=== PATIENT | female | born 1950 | race American Indian/Alaskan Native ===

== ENCOUNTER 2017-02-27 12:51 | Emergency (ER) | payer MEDICARE ==
[2017-02-27 13:21] VITALS: TEMP 98.1
[2017-02-27] MEDS ORDERED: Naproxen 550 mg Tab PO STA (13:51)
--- NOTE | 2017-02-27 13:53 | C.PDOC ---
History Of Present Illness 66 year old female with a history of HTN, asthma, and high cholesterol presents to the ED as a referral from PMD with complaints of intermittent left sided chest pain for three days. Patient states she went to her PMD for a checkup this morning and was referred to ED for further evaluation of chest pain. She notes this weekend she "did not feel right" and describes the chest pain as a "muscle spasm." Patient took Tylenol with improvement of symptoms and denies radiation of pain or exacerbating factors. She denies fever, chills, shortness of breath, nausea, vomiting, weakness, numbness, leg swelling, or calf tenderness. Chief Complaint (Nursing): Chest Pain History Per: Patient History/Exam Limitations: no limitations Onset/Duration Of Symptoms: Hrs Current Symptoms Are (Timing): Still Present Quality: "Pain" Associated Symptoms: denies: Nausea, Dyspnea, Diaphoresis, Syncope Exacerbating Factors: None Alleviating Factors: None Recent travel outside of the [place]: No Additional History Per: Prior Records (Patient's PMD ) Past Medical History Reviewed: Historical Data, Nursing Documentation, Vital Signs Vital Signs: Last Vital Signs Temp 98.1 F 02/27/17 13:17 Pulse 64 02/27/17 15:56 Resp 16 02/27/17 15:56 BP 171/83 H 02/27/17 15:56 Pulse Ox 100 02/27/17 15:56 - Medical History PMH: HTN Family History: States: Unknown Family Hx - Social History Hx Alcohol Use: No Hx Substance Use: No - Immunization History Hx Tetanus Toxoid Vaccination: No Hx Influenza Vaccination: No Hx Pneumococcal Vaccination: No Review Of Systems Constitutional: Negative for: Fever, Chills Cardiovascular: Positive for: Chest Pain. Negative for: Palpitations, Light Headedness Respiratory: Negative for: Cough, Shortness of Breath Gastrointestinal: Negative for: Nausea, Vomiting, Abdominal Pain Neurological: Negative for: Weakness, Numbness Physical Exam - Physical Exam Appears: Well (well developed and nourished ), Non-toxic, No Acute Distress, Other (Paitent is pleasant and on exam denies pain ) Skin: Warm, Dry Head: Atraumatic, Normacephalic Eye(s): bilateral: Normal Inspection, PERRL, EOMI Ear(s): Bilateral: Normal Oral Mucosa: Moist Throat: Normal, No Erythema, No Exudate Neck: Normal ROM, Supple Chest: Symmetrical, No Deformity, Tenderness (reproducible chest tenderness to the left chest wall ) Cardiovascular: Rhythm Regular, No Murmur Gastrointestinal/Abdominal: Soft, No Tenderness, No Organomegaly Extremity: Normal ROM, No Tenderness, No Pedal Edema, No Calf Tenderness, Capillary Refill (good capillary refill, less than two seconds ), No Deformity, No Swelling Neurological/Psych: Oriented x3, Other (GCS 15) ED Course And Treatment - Laboratory Results Result Diagrams: 02/27/17 14:01 02/27/17 14:01 ECG: Interpreted By Me, Viewed By Me ECG Rhythm: Sinus Rhythm Interpretation Of ECG: All intervals are within normal limits. No ectopy. ST wave segments are in normal limits. No old EKG available for comparison. Rate From EC O2 Sat by Pulse Oximetry: 99 (RA) - Radiology CXR: Interpreted by Me, Viewed By Me CXR Interpretation: Yes: No Acute Disease, Other (Cardiac silhouette within normal limits. Aortic knob within normal limits. ) Progress Note: EKG, CXR, and blood work were ordered. Patient was given naproxen. Disposition Counseled Patient/Family Regarding: Studies Performed, Diagnosis, Need For Followup - Disposition Referrals: Reuben Whitaker MD [Staff Provider] - Disposition: HOME/ ROUTINE Disposition Time: 15:31 Condition: GOOD Prescriptions: Naproxen Sodium 550 mg PO BID PRN #20 tablet PRN Reason: Pain, Mild (1-3) Forms: [facility] (Tristanian) Print Language: BELARUSIAN - POA Core Measure Indicators: Chest Pain - Clinical Impression Clinical Impression: Chest wall pain - Scribe Statement The provider has reviewed the documentation as recorded by the Scribchris De La Torre All medical record entries made by the Scribe were at my direction and personally dictated by me. I have reviewed the chart and agree that the record accurately reflects my personal performance of the history, physical exam, medical decision making, and the department course for this patient. I have also personally directed, reviewed, and agree with the discharge instructions and disposition.
[2017-02-27] MEDS ORDERED: Naproxen 550 mg Tab PO ONE (14:03)
[2017-02-27 14:07] LABS: BASO # 0.1 K/uL (0.0-0.2); BASO % 1.1 % (0.0-2.0); EOS # 0.2 K/uL (0.0-0.7); EOS % 3.1 % (0.0-4.0); HEMATOCRIT 37.3 % (34.0-47.0); LYMPH # 2.1 K/uL (1.0-4.3); LYMPH % 32.9 % (20.0-40.0); MEAN CELL VOLUME 84.3 fL (81.0-99.0); MEAN CORPUSCULAR HEMOGLOBIN 28.4 pg (27.0-31.0); MEAN CORPUSCULAR HGB CONC 33.8 g/dL (33.0-37.0); MEAN PLATELET VOLUME 8.1 fL (7.2-11.7); MONO # 0.7 K/uL (0.0-0.8); MONO % 10.4 % (0.0-10.0); NRBC % 0.1 % (0.0-2.0); RED CELL DISTRIBUTION WIDTH 14.2 % (11.5-14.5); WHITE BLOOD COUNT 6.3 K/uL (4.8-10.8)
[2017-02-27 14:18] LABS: CHLORIDE 100 mmol/L (98-107); POTASSIUM 4.2 mmol/L (3.6-5.2); SODIUM 140 mmol/L (132-148)
[2017-02-27 14:20] LABS: GFR AFRICAN-AMERICAN > 60
[2017-02-27 14:21] LABS: ALB/GLOB RATIO 1.1 (1.0-2.1); ALKALINE PHOSPHATASE 97 U/L (38-126); ALT/SGPT 29 U/L (9-52); AST/SGOT 17 U/L (14-36); BILIRUBIN,TOTAL 0.4 mg/dL (0.2-1.3); BLOOD UREA NITROGEN 22 mg/dL (7-17); CALCIUM 9.4 mg/dl (8.6-10.4); CARBON DIOXIDE 26 mmol/L (22-30); GLUCOSE,RANDOM 80 mg/dL (65-105); TOTAL PROTEIN 7.9 g/dL (6.3-8.3)
--- NOTE | 2017-02-27 15:32 | RAD ---
HISTORY: chest pain COMPARISON: None. FINDINGS: LUNGS: No active pulmonary disease. PLEURA: No significant pleural effusion identified, no pneumothorax apparent. CARDIOVASCULAR: Normal. OSSEOUS STRUCTURES: No significant abnormalities. VISUALIZED UPPER ABDOMEN: Normal. OTHER FINDINGS: None. IMPRESSION: No active disease. Please note: No preliminary report/ innterpretation of this examination provided by emergency department personnel.
[2017-02-27 15:57] VITALS: BP 171/83; PULSE 64; RESP 16
[2017-02-27 16:56] VITALS: O2SAT 99
--- NOTE | 2017-03-01 11:52 | CARD ---
APPROVED REPORT EKG Measurement Heart [id number] <Conclusion> Normal sinus rhythm Normal ECG
== END 2017-02-27 15:57 | disposition home or self-care (01) ==
LOC: C.ER 12:51
DX: R07.89 Other chest pain (principal)

== ENCOUNTER 2017-05-05 13:46 | Inpatient (IN) | payer OTHER, MEDICARE ==
[2017-05-05] MEDS ORDERED: Labetalol 25mg/5ml Syringe IVP STA (13:59)
[2017-05-05 14:21] LABS: BASO % 0.7 % (0.0-2.0); EOS # 0.2 K/uL (0.0-0.7); EOS % 3.5 % (0.0-4.0); HEMATOCRIT 39.3 % (34.0-47.0); LYMPH # 2.6 K/uL (1.0-4.3); LYMPH % 39.1 % (20.0-40.0); MEAN CELL VOLUME 85.4 fL (81.0-99.0); MEAN CORPUSCULAR HEMOGLOBIN 27.7 pg (27.0-31.0); MEAN CORPUSCULAR HGB CONC 32.4 g/dL (33.0-37.0); MONO # 0.6 K/uL (0.0-0.8); MONO % 9.7 % (0.0-10.0); RED CELL DISTRIBUTION WIDTH 13.9 % (11.5-14.5); WHITE BLOOD COUNT 6.7 K/uL (4.8-10.8)
[2017-05-05 14:27] LABS: ALKALINE PHOSPHATASE 96 U/L (38-126); ALT/SGPT 33 U/L (9-52); AST/SGOT 20 U/L (14-36); BILIRUBIN,TOTAL 0.4 mg/dL (0.2-1.3); BLOOD UREA NITROGEN 19 mg/dL (7-17); CALCIUM 8.8 mg/dl (8.6-10.4); CARBON DIOXIDE 33 mmol/L (22-30); CHLORIDE 101 mmol/L (98-107); CHOLESTEROL 237 mg/dL (0-199); GFR AFRICAN-AMERICAN > 60; GLUCOSE,RANDOM 114 mg/dL (65-105); POTASSIUM 3.7 mmol/L (3.6-5.2); SODIUM 138 mmol/L (132-148); TOTAL PROTEIN 8.7 g/dL (6.3-8.3)
--- NOTE | 2017-05-05 14:35 | RAD ---
HISTORY: adm COMPARISON: 02/27/2017. FINDINGS: LUNGS: No active pulmonary disease. PLEURA: No significant pleural effusion identified, no pneumothorax apparent. CARDIOVASCULAR: Normal. OSSEOUS STRUCTURES: No significant abnormalities. VISUALIZED UPPER ABDOMEN: Normal. OTHER FINDINGS: None. IMPRESSION: No active pulmonary disease.
[2017-05-05 14:37] LABS: ALB/GLOB RATIO 0.9 (1.0-2.1)
[2017-05-05] MEDS ORDERED: Aspirin 325 mg EC Tablets PO STA (14:51)
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
[2017-05-05 15:18] LABS: RBC URINE 11 /hpf (0-3); URINE BILIRUBIN NEGATIVE (NEGATIVE); URINE BLOOD 2+ (NEGATIVE); URINE COLOR Yellow (YELLOW); URINE GLUCOSE (UA) NORMAL (Normal); URINE KETONE NEGATIVE (NEGATIVE); URINE LEUKOCYTE ESTERASE NEG Leu/uL (Negative); URINE PROTEIN NEGATIVE (NEGATIVE); URINE UROBILINOGEN NORMAL mg/dL (0.2-1.0); WBC URINE < 1 /hpf (0-5)
--- NOTE | 2017-05-05 15:19 | CT ---
PROCEDURE: CT HEAD WITHOUT CONTRAST. HISTORY: HTN, MS change, ? bleed COMPARISON: None available. TECHNIQUE: Axial computed tomography images were obtained through the head/brain without intravenous contrast. Radiation dose: Total exam DLP = 830.72 mGy-cm. This CT exam was performed using one or more of the following dose reduction techniques: Automated exposure control, adjustment of the mA and/or kV according to patient size, and/or use of iterative reconstruction technique. FINDINGS: HEMORRHAGE: No intracranial hemorrhage. BRAIN: No mass effect or edema. The forrest-white matter differentiation appears intact. Please note that MRI with diffusion imaging is more sensitive in the detection of acute ischemic event. VENTRICLES: No hydrocephalus. CALVARIUM: Unremarkable. PARANASAL SINUSES: Unremarkable as visualized. No significant inflammatory changes. MASTOID AIR CELLS: Unremarkable as visualized. No inflammatory changes. OTHER FINDINGS: None. IMPRESSION: No acute intracranial pathology identified.
--- NOTE | 2017-05-05 15:33 | C.PDOC ---
Time Seen by Provider: 05/05/17 13:49 Chief Complaint (Nursing): Dizziness/Lightheaded Past Medical History Vital Signs: Last Vital Signs Temp 97.9 F 05/05/17 13:46 Pulse 76 05/05/17 14:13 Resp 16 05/05/17 14:13 BP 197/77 H 05/05/17 14:13 Pulse Ox 100 05/05/17 14:13 - Medical History PMH: HTN Family History: States: Unknown Family Hx - Social History Hx Alcohol Use: No Hx Substance Use: No - Immunization History Hx Tetanus Toxoid Vaccination: No Hx Influenza Vaccination: No Hx Pneumococcal Vaccination: No ED Course And Treatment - Laboratory Results Result Diagrams: 05/05/17 14:05 05/05/17 14:05 O2 Sat by Pulse Oximetry: 100 Disposition - Disposition
[2017-05-05] MEDS ORDERED: Albuterol HFA 90 mcg/actuation (8 g) IH PRN (16:57)
[2017-05-05 20:24] VITALS: RESP 20; O2SAT 99
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
[2017-05-06 04:51] VITALS: BP 101/63; TEMP 97.6
[2017-05-06] MEDS ORDERED: Enoxaparin 40 mg Syringe SC SCH (10:00)
[2017-05-06] MEDS ORDERED: Rosuvastatin Calcium 2.5 mg Tab PO SCH (10:00)
[2017-05-06] MEDS ORDERED: Gadodiamide 287 mg/ml 20 ml IV ONE (10:25)
--- NOTE | 2017-05-06 13:18 | MRI ---
PROCEDURE: MRI BRAIN WITH AND WITHOUT CONTRAST HISTORY: syncope COMPARISON: Comparison is made to the previous CT of the head dated 05/05/2017 TECHNIQUE: Multiplanar, multisequence MR images of the brain were obtained with and without intravenous contrast enhancement. FINDINGS: HEMORRHAGE: None DWI: No evidence of an acute or early subacute infarction. BRAIN PARENCHYMA: No mass,mass effect or edema. No atrophy or chronic microvascular ischemic changes. ENHANCEMENT: No abnormal intracranial enhancement. VENTRICLES: Unremarkable. No hydrocephalus. CRANIUM: Unremarkable. ORBITS: Grossly unremarkable. PARANASAL SINUSES/MASTOIDS: Clear VASCULAR SYSTEM: Skull base flow voids intact. OTHER FINDINGS: None . IMPRESSION: No evidence of acute infarction or acute pathology in the brain. No evidence of mass lesion mass effect or midline shift. No evidence of abnormal enhancement in the brain.
--- NOTE | 2017-05-06 15:28 | CP.PCM.PN ---
Subjective - Date & Time of Evaluation Date of Evaluation: 05/06/17 Time of Evaluation: 11:00 - Subjective Subjective: Alert, oriented x3, no sob or chest pains, NAD. Objective - Vital Signs/Intake and Output Vital Signs (last 24 hours): Temp Pulse Resp BP Pulse Ox 97.6 F 81 20 101/63 99 05/06/17 04:21 05/06/17 07:58 05/06/17 04:21 05/06/17 04:21 05/05/17 23:15 Intake and Output: 05/06/17 05/06/17 06:59 18:59 Intake Total 210 Balance 210 - Medications Medications: Current Medications Albuterol (Ventolin Hfa 90 Mcg/Actuation (8 G)) 2 puff IH RQ6 PRN PRN Reason: Shortness of Breath Enoxaparin Sodium (Lovenox) 40 mg SC DAILY [facility] Last Admin: 05/06/17 09:48 Dose: 40 mg Losartan Potassium (Cozaar) 25 mg PO DAILY [facility] Last Admin: 05/06/17 09:42 Dose: 25 mg Montelukast Sodium (Singulair) 10 mg PO DAILY [facility] Last Admin: 05/06/17 09:42 Dose: 10 mg Pneumococcal Polyvalent Vaccine (Pneumovax 23 Vaccine) 0.5 ml IM .ONCE ONE Stop: 05/08/17 10:01 Rosuvastatin Calcium (Crestor) 2.5 mg PO DAILY [facility] - Labs Labs: 05/05/17 14:05 05/05/17 14:05 PT 11.1 SECONDS (9.7-12.2) 05/05/17 14:05 INR 1.0 05/05/17 14:05 APTT 29 SECONDS (21-34) 05/05/17 14:05 Assessment and Plan - Assessment and Plan (Free Text) Assessment: Patient admitted with change in mental status, seen and examined. Alert and orientx3, ambulatory. Denies any complaints. MRI and CT scan negative. Discussed with DR Whitaker, plan to discharge home today. Advised to follow up in the office in 1 week.
[2017-05-06 16:23] VITALS: PULSE 71
[2017-05-07] MEDS ORDERED: Influenza Vaccine 60 mcg/0.5 mL SYR (4YR UP) IM ONE (10:00)
--- NOTE | 2017-05-07 11:00 | CP.PCM.DIS ---
Provider - Provider Date of Admission: 05/06/17 09:05 Attending physician: Reuben Whitaker MD Time Spent in preparation of Discharge (in minutes): 56 Diagnosis - Discharge Diagnosis (1) Syncope Status: Acute (2) Change in mental state Status: Acute (3) Hypertensive urgency Status: Acute Hospital Course - Lab Results Lab Results: Most Recent Lab Values WBC 6.7 K/uL (4.8-10.8) 05/05/17 14:05 RBC 4.61 Mil/uL (3.80-5.20) 05/05/17 14:05 Hgb 12.8 g/dL (11.0-16.0) 05/05/17 14:05 Hct 39.3 % (34.0-47.0) 05/05/17 14:05 MCV 85.4 fL (81.0-99.0) 05/05/17 14:05 MCH 27.7 pg (27.0-31.0) 05/05/17 14:05 MCHC 32.4 g/dL (33.0-37.0) L 05/05/17 14:05 RDW 13.9 % (11.5-14.5) 05/05/17 14:05 Plt Count 263 K/uL (130-400) 05/05/17 14:05 MPV 8.0 fL (7.2-11.7) 05/05/17 14:05 Neut % (Auto) 47.0 % (50.0-75.0) L 05/05/17 14:05 Lymph % (Auto) 39.1 % (20.0-40.0) 05/05/17 14:05 Divide % (Auto) 9.7 % (0.0-10.0) 05/05/17 14:05 Eos % (Auto) 3.5 % (0.0-4.0) 05/05/17 14:05 Baso % (Auto) 0.7 % (0.0-2.0) 05/05/17 14:05 Neut # 3.1 K/uL (1.8-7.0) 05/05/17 14:05 Lymph # 2.6 K/uL (1.0-4.3) 05/05/17 14:05 Divide # 0.6 K/uL (0.0-0.8) 05/05/17 14:05 Eos # 0.2 K/uL (0.0-0.7) 05/05/17 14:05 Baso # 0.0 K/uL (0.0-0.2) 05/05/17 14:05 PT 11.1 SECONDS (9.7-12.2) 05/05/17 14:05 INR 1.0 05/05/17 14:05 APTT 29 SECONDS (21-34) 05/05/17 14:05 Sodium 138 mmol/L (132-148) 05/05/17 14:05 Potassium 3.7 mmol/L (3.6-5.2) 05/05/17 14:05 Chloride 101 mmol/L (98-107) 05/05/17 14:05 Carbon Dioxide 33 mmol/L (22-30) H 05/05/17 14:05 Anion Gap 8 (10-20) L 05/05/17 14:05 BUN 19 mg/dL (7-17) H 05/05/17 14:05 Creatinine 0.9 mg/dL (0.7-1.2) 05/05/17 14:05 Est GFR ( Amer) > 60 05/05/17 14:05 Est GFR (Non-Af Amer) > 60 05/05/17 14:05 POC Glucose (mg/dL) 79 mg/dL (65-110) 05/06/17 16:32 Random Glucose 114 mg/dL (65-105) H 05/05/17 14:05 Hemoglobin A1c 5.6 % (4.2-6.5) 05/05/17 14:05 Calcium 8.8 mg/dl (8.6-10.4) 05/05/17 14:05 Total Bilirubin 0.4 mg/dL (0.2-1.3) 05/05/17 14:05 AST 20 U/L (14-36) 05/05/17 14:05 ALT 33 U/L (9-52) 05/05/17 14:05 Alkaline Phosphatase 96 U/L (38-126) 05/05/17 14:05 Troponin I < 0.0120 ng/mL (0.00-0.120) 05/05/17 14:05 Total Protein 8.7 g/dL (6.3-8.3) H 05/05/17 14:05 Albumin 4.1 g/dL (3.5-5.0) 05/05/17 14:05 Globulin 4.7 gm/dL (2.2-3.9) H 05/05/17 14:05 Albumin/Globulin Ratio 0.9 (1.0-2.1) L 05/05/17 14:05 Triglycerides 156 mg/dL (0-149) H D 05/05/17 14:05 Cholesterol 237 mg/dL (0-199) H 05/05/17 14:05 LDL Cholesterol Direct 154 mg/dL (0-129) H 05/05/17 14:05 HDL Cholesterol 56 mg/dL (30-70) 05/05/17 14:05 Urine Color Yellow (YELLOW) 05/05/17 15:10 Urine Clarity Clear (Clear) 05/05/17 15:10 Urine pH 6.0 (5.0-8.0) 05/05/17 15:10 Ur Specific [place] 1.014 (1.003-1.030) 05/05/17 15:10 Urine Protein Negative mg/dL (NEGATIVE) 05/05/17 15:10 Urine Glucose (UA) Normal mg/dL (Normal) 05/05/17 15:10 Urine Ketones Negative mg/dL (NEGATIVE) 05/05/17 15:10 Urine Blood 2+ (NEGATIVE) H 05/05/17 15:10 Urine Nitrate Negative (NEGATIVE) 05/05/17 15:10 Urine Bilirubin Negative (NEGATIVE) 05/05/17 15:10 Urine Urobilinogen Normal mg/dL (0.2-1.0) 05/05/17 15:10 Ur Leukocyte Esterase Neg [place]/uL (Negative) 05/05/17 15:10 Urine WBC (Auto) < 1 /hpf (0-5) 05/05/17 15:10 Urine RBC (Auto) 11 /hpf (0-3) H 05/05/17 15:10 Ur Squamous Epith Cells 1 /hpf (0-5) 05/05/17 15:10 Urine Opiates Screen Negative (NEGATIVE) 05/05/17 15:10 Urine Methadone Screen Negative (NEGATIVE) 05/05/17 15:10 Ur Barbiturates Screen Negative (NEGATIVE) 05/05/17 15:10 Ur Phencyclidine Scrn Negative (NEGATIVE) 05/05/17 15:10 Ur Amphetamines Screen Negative (NEGATIVE) 05/05/17 15:10 U Benzodiazepines Scrn Negative (NEGATIVE) 05/05/17 15:10 U Oth Cocaine Metabols Negative (NEGATIVE) 05/05/17 15:10 U Cannabinoids Screen Negative (NEGATIVE) 05/05/17 15:10 Alcohol, Quantitative < 10 mg/dl (0-10) 05/05/17 15:14 - Hospital Course Hospital Course: Patient admitted with change in mental status, seen and examined. Alert and orientx3, ambulatory. Denies any complaints. MRI and CT scan negative. , plan to discharge home today. Advised to follow up in the office in 1 week. Discharge Exam - Head Exam Head Exam: ATRAUMATIC, NORMAL INSPECTION, NORMOCEPHALIC - Eye Exam Eye Exam: EOMI, Normal appearance, PERRL Pupil Exam: NORMAL ACCOMODATION, PERRL - ENT Exam ENT Exam: Mucous Membranes Moist - Respiratory Exam Respiratory Exam: Clear to PA & Lateral, NORMAL BREATHING PATTERN - Cardiovascular Exam Cardiovascular Exam: REGULAR RHYTHM, +S1, +S2 - GI/Abdominal Exam GI & Abdominal Exam: Normal Bowel Sounds - Rectal Exam Rectal Exam: Deferred Discharge Plan - Follow Up Plan Condition: GOOD Disposition: HOME/ ROUTINE Instructions: Heart Healthy Diet (DC), Seasoning Without Salt (GEN), Syncope ( DC), Syncope (GEN), Low Sodium Diet (DC), Hypertension (DC), Hypertension (GEN) Additional Instructions: DISCHARGE HOME PER DR WHITAKER F/U WITH PMD IN 1 WEEK continue with present meds at home Referrals: Reuben Whitaker MD [Staff Provider] -
[2017-05-08] MEDS ORDERED: Pneumococcal 23-Valent Vaccine IM ONE (10:00)
== END 2017-05-06 16:20 | disposition home or self-care (01) | DRG 305 ==
LOC: C.ER 13:46 → C.9E 15:50 → INTOOBSV 15:50 → C.6T 16:56 → OBSVTOIN 05-06 09:05
PROVIDERS: ADMIT Internal Medicine; ATTEND Internal Medicine
DX: I16.0 Hypertensive urgency (principal); J45.909 Unspecified asthma, uncomplicated; R55 Syncope and collapse; Z91.81 History of falling

== ENCOUNTER 2017-10-18 09:24 | Emergency (ER) | payer OTHER, MEDICARE ==
[2017-10-18 09:33] VITALS: RESP 20; O2SAT 100
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
[2017-10-18 11:42] VITALS: BP 154/78; PULSE 70; TEMP 98.6
== END 2017-10-18 11:44 | disposition home or self-care (01) ==
LOC: C.ER 09:24
DX: S09.90XA Unspecified injury of head, initial encounter (principal); S13.4XXA Sprain of ligaments of cervical spine, initial encounter; S33.5XXA Sprain of ligaments of lumbar spine, initial encounter; S23.3XXA Sprain of ligaments of thoracic spine, initial encounter; V49.40XA Driver injured in collision with unspecified motor vehicles in traffic accident, initial encounter; I10 Essential (primary) hypertension